=== PATIENT | female | born 1970 | race Caucasian/White ===

== ENCOUNTER 2023-05-26 22:29 | Emergency (ER) | payer OTHER, SELFPAY ==
[2023-05-26 22:30] VITALS: BP 166/96
[2023-05-26 22:53] LABS: % Basophils 0.5 % (0-2); % Immature Granulocytes 0.2 % (0-0.5); % Lymphocytes 44.6 % (20.5-51.1); % Monocytes 6.9 % (1.7-9.3); % Neutrophils 43.8 % (42.2-75.2); Absolute Basophils 0.1 10^3/uL (0-0.2); Absolute Eosinophils 0.4 10^3/uL (0-0.7); Absolute Lymphocytes 4.6 10^3/uL (1.2-3.4); Absolute Monocytes 0.7 10^3/uL (0.1-0.6); Absolute Neutrophils 4.5 10^3/uL (1.4-6.5); Hematocrit 39.1 % (37.0-47.0); Hemoglobin 14.2 g/dL (12.0-16.0); Mean Corp Hgb Conc. 36.3 g/dL (33.0-37.0); Mean Corpuscular Hgb 31.2 pg (27.0-31.0); Mean Corpuscular Volume 85.9 fL (81.0-99.0); Mean Platelet Volume 10.3 fL (7.4-10.4); Nucleated Red Blood Cells % 0 %; Platelet Count 243 10^3/uL (130-400); Red Blood Cell Count 4.55 10^6/uL (4.20-5.40); Red Cell Dist. Width 11.9 % (11.5-14.5); White Blood Cell Count 10.3 10^3/uL (4.8-10.8)
[2023-05-26 23:07] LABS: HCG, Serum Qualitative Screen Negative
[2023-05-26 23:10] LABS: ALT (SGPT) 21 U/L (0-35); AST (SGOT) 27 U/L (14-36); Albumin 4.5 g/dl (3.5-5.0); Alkaline Phosphatase 68 U/L (38-126); Blood Urea Nitrogen 34 mg/dl (7-17); Calcium 9.7 mg/dl (8.4-10.2); Carbon Dioxide 21 mmol/L (22-30); Chloride 108 mmol/L (98-107); Glucose 113 mg/dl (70-99); Potassium 4.1 mmol/L (3.5-5.1); Sodium 136 mmol/L (135-145); Total Bilirubin 0.7 mg/dl (0.2-1.3); Total Protein 7.4 g/dl (6.3-8.2); eGFR > 60.00
--- NOTE | 2023-05-26 23:45 | ED.GENMED ---
History of Present Illness
<SMOOTH Benton - Last Filed: 05/27/23 02:24>
General
Chief Complaint: Heart Rate Problem
Source: patient
Exam Limitations: none
Time Seen by Provider: 05/26/23 23:34
Nursing documentation reviewed up to this point in time: agreed with
Travel History
Have you had any contact with someone who has COVID-19?: No
Do you have any symptoms of coronavirus? Fever > 100 degrees, chills, cough, shortness of breath, sore throat, loss of taste or smell, muscle aches, or headache?: No
History of Present Illness
History of Present Illness:
Pt is a 52 yo female with PMH of ex-smoker and asthma who presents tonight with intermittent heart palpitations at rest. Pt states that for the last week, she has been experiencing episodes of heart palpitations while she is resting. The episodes
have not occurred when she is training for her triathalon or when she was skiing tonight, only when she is sitting or laying down. She described the palpitations as 'fluttering then 2-3 heavy beats then back to normal' lasting less than one minute
each time. Denies associated chest pain, SOB, arm pain, jaw pain, lightheadedness, dizziness, headache. Denies recent illnesses or fever. Denies increased stress or caffeine recently. Pt denies prior history of cardiac problems and does not
currently see a pantry goods worker.
Review of Systems
<SMOOTH Benton - Last Filed: 05/27/23 02:24>
Review of Systems
Allergies reviewed?: Yes
All Other Systems: ROS reviewed and negative except as documented in HPI and ROS
Phy Exam
<SMOOTH Benton - Last Filed: 05/27/23 02:24>
General Physical Exam
General Presentation: well appearing and no apparent distress
General age: appears stated age
General Skin: warm and dry
General Habitus: normal
General Mental: alert
General Hydration: appears well hydrated
ENT Exam
ENT Exam: pharynx normal, neck supple, normocephalic, lymphnodes and swallowing well
Eye Exam
Eye Exam: PERRL and conjunctiva normal
Cardiovascular Exam
Cardiovascular Exam: no edema, no gallop, no murmur, normal peripheral pulses and occasionally irregular (heard 3 irregular beats that aligned with pt feeling the palpitations. Otherwise regular)
Pulmonary Exam
Pulmonary Exam: lungs clear, no respiratory distress, no rales, no crackles, no rhonchi, no wheezing and no cough
Gastrointestinal Exam
Gastrointestinal Exam: normal bowel sounds, non tender, soft and non distended
Neurological Exam
Neurological Exam: alert, oriented x3 and speech normal
Musculoskeletal Exam
Musculoskeletal Exam: full ROM
Skin Exam
Skin Exam: normal color and warm/dry
Psychiatric Exam
Psychiatric Exam: normal mood/affect
Course
<SMOOTH Benton - Last Filed: 05/27/23 02:24>
Orders/Labs/Results
Orders:
Orders
05/26/23 22:33
EKG [Electrocardiogram (*1)] Urgent
Reason for Study: Palpitations
EKG- Treatment ONCE
05/26/23 22:35
Test Result ONCE
05/26/23 22:47
CBC/With Diff [Complete Blood Count/With Diff] Urgent
CMP [Comprehensive Metabolic Panel] Urgent
HCG, Serum Qualitative Screen Urgent
05/27/23 00:08
EKG [Electrocardiogram (*1)] Urgent
Reason for Study: Palpitations
05/27/23 00:19
TSH Reflex To Free T4 Urgent
05/27/23 00:21
0.9% Sodium Chloride 1000 ml [Nss] 1,000 ml IV BOLUS
Abnormal Lab Results
05/26/23
22:47
MCH 31.2 H pg
(27.0-31.0)
Absolute Lymphs (auto) 4.6 H 10^3/uL
(1.2-3.4)
Absolute Monos (auto) 0.7 H 10^3/uL
(0.1-0.6)
Chloride 108 H mmol/L
(98-107)
Carbon Dioxide 21 L mmol/L
(22-30)
BUN 34 H mg/dl
(7-17)
Creatinine 1.1 H mg/dL
(0.6-1.0)
Glucose 113 H mg/dl
(70-99)
05/26/23 22:47
05/26/23 22:47
Vital Signs
Initial and Last Documented VS:
Initial Vital Signs
Temp Pulse Resp BP Pulse Ox
97.8 F 72 16 166/96 100
05/26/23 22:30 05/26/23 22:30 05/26/23 22:30 05/26/23 22:30 05/26/23 22:30
Last Documented Vital Signs
Temp Pulse Resp BP Pulse Ox
97.8 F 68 20 138/87 98
05/26/23 22:30 05/27/23 01:30 05/27/23 01:30 05/27/23 00:07 05/27/23 00:08
Huberlt;Arnaud Barnett, - Last Filed: 05/27/23 02:23>
Orders/Labs/Results
Orders:
Orders
05/26/23 22:33
EKG [Electrocardiogram (*1)] Urgent
Reason for Study: Palpitations
EKG- Treatment ONCE
05/26/23 22:35
Test Result ONCE
05/26/23 22:47
CBC/With Diff [Complete Blood Count/With Diff] Urgent
CMP [Comprehensive Metabolic Panel] Urgent
HCG, Serum Qualitative Screen Urgent
05/27/23 00:08
EKG [Electrocardiogram (*1)] Urgent
Reason for Study: Palpitations
05/27/23 00:19
TSH Reflex To Free T4 Urgent
05/27/23 00:21
0.9% Sodium Chloride 1000 ml [Nss] 1,000 ml IV BOLUS
Abnormal Lab Results
05/26/23
22:47
MCH 31.2 H pg
(27.0-31.0)
Absolute Lymphs (auto) 4.6 H 10^3/uL
(1.2-3.4)
Absolute Monos (auto) 0.7 H 10^3/uL
(0.1-0.6)
Chloride 108 H mmol/L
(98-107)
Carbon Dioxide 21 L mmol/L
(22-30)
BUN 34 H mg/dl
(7-17)
Creatinine 1.1 H mg/dL
(0.6-1.0)
Glucose 113 H mg/dl
(70-99)
05/26/23 22:47
05/26/23 22:47
Vital Signs
Initial and Last Documented VS:
Initial Vital Signs
Temp Pulse Resp BP Pulse Ox
97.8 F 72 16 166/96 100
05/26/23 22:30 05/26/23 22:30 05/26/23 22:30 05/26/23 22:30 05/26/23 22:30
Last Documented Vital Signs
Temp Pulse Resp BP Pulse Ox
97.8 F 68 20 138/87 98
05/26/23 22:30 05/27/23 01:30 05/27/23 01:30 05/27/23 00:07 05/27/23 00:08
<SMOOTH Benton - Last Filed: 05/27/23 02:24>
MDM/Problems Addressed
Differential Diagnosis Includes:
PVCs, PACs, paroxysmal SVT, anxiety
MDM/Problems Addressed:
Pt is a 52 yo female who presents with one week of intermittent palpitations at rest with no associated symptoms
<SMOOTH Benton - Last Filed: 05/27/23 02:24>
*Critical Care Note
Total Time (30-74mins, 75-104mins- exclusive of procedures): Not Applicable
<SMOOTH Benton - Last Filed: 05/27/23 02:24>
Update Note
Update Note:
05/27/2023 0053 AM: Pt is resting comfortably in bed. Explained that we are still waiting on her TSH labs and another EKG to try to pickle pumper on her palpitations.
ED Attending Note
<SMOOTH Benton - Last Filed: 05/27/23 02:24>
-
Portions of this chart may have been created with voice recognition software.� Occasional wrong word or��sound alike� substitutions may have occurred due to the inherent limitations of voice recognition software.
<Arnaud Barnett DO - Last Filed: 05/27/23 02:23>
ED Attending Note
Patient seen and examined by attending physician: Yes
I performed the substantive portion of visit, reviewed & personally made and approve the management plan that is documented in note by myself or CLEOPATRA.: Yes
ED Attending Note:
This is a pleasant 52-year-old female that presents with palpitations. She states that they have been intermittent for the last week. He states that she has no chest pain or shortness of breath. She states that she is very athletic and swims on a
regular basis. She skis very often. She reports that she was skiing today, without palpitations. When she has palpitations she states that they are '2-3 beats of an irregular nature 'and then back to normal. Patient is a former smoker and does
have asthma. Patient was seen in conjunction with the PA student. I have reviewed and agree with the history and treatment plan presented. On my independent physical exam, patient is awake, alert, and oriented x3, no acute distress. Palpitations
not reproducible. Heart is regular rate rhythm. Lungs are clear to auscultation bilaterally without wheezes rales or rhonchi present. Extremities have good distal pulses. Skin is warm and dry. No edema present.
Vital signs are stable. Patient not hypoxic
Nursing note reviewed. I agree with nursing documentation up to this point in time.
Home Meds and allergies reviewed.
NUMBER AND COMPLEXITY OF PROBLEMS ADDRESSED AT THE ENCOUNTER
� Chronic conditions affecting care: Former smoker
� Acute Exacerbation and/or Progression of Chronic Illness:
� Differential Diagnosis includes: Palpitations, dehydration, ACS
AMOUNT AND/OR COMPLEXITY OF DATA TO BE REVIEWED AND ANALYZED
I performed an independent evaluation of the following and my interpretation is:
EKG: EKG shows normal sinus rhythm rate 60, normal intervals, normal axis. No evidence of acute ischemia present.
CT:
X-rays: Chest x-ray read as normal by me.
Ultrasound:
Laboratory Studies:
Other:
Review of other/old records:
Clinical information was obtained by an independent historian:
Prescriptions/Medications Considered but not given:
Further testing considered but not performed:
RISK OF COMPLICATIONS AND/OR MORBIDITY OR MORTALITY OF PATIENT MANAGEMENT
Social determinants of health affecting care: Good Social Support, very athletic
Discussion with other providers:
Escalation of care including admission/observation vs risk of discharge considered:
CRITICAL CARE NOTE:
Total Time (exclusive of procedures):
Update:
Discharge Plan
Departure
Patient Disposition: Home (Routine Discharge)
Date of Disposition: 05/27/23
Time of Disposition: 02:22
Patient with high blood pressure during this ER visit?: Yes
Condition: Good
Covid-19: Not Applicable
Discharge Problem:
Heart palpitations
Instructions: Palpitations (DC), BLOOD PRESSURE
Prescriptions:
No Action
albuterol sulfate 90 mcg/actuation Hfa Aerosol Inhaler
2 puff INHALATION PRN PRN (Reason: SOB, Wheezes)
fluticasone propionate [Flonase Allergy Relief] 50 mcg/actuation [place],Suspension
2 spray INTRANASAL DAILY PRN (Reason: allergy symptoms)
oxycodone-acetaminophen 5-325 mg Tablet
1 tab PO Q4HPRN PRN (Reason: moderate pain) Qty: 20 0RF
Referrals:
[facility]- [facility] [Provider Group]
Sandie Barnard PA [Family Provider] -
Activity Restrictions/Additional Instructions:
It was a pleasure meeting you and taking part in your care. We hope for your continued healing and wellness.
Please read discharge instructions in their entirety. However, they are for general education and may not describe your exact diagnosis at discharge. Information on your ER visit and medical conditions were discussed with you along with appropriate
follow up information...
If indicated, please take your medications as instructed and indicated on discharge paperwork.
Please schedule a follow up appointment as directed. Call to schedule an appointment
Please return to the emergency department with ANY change in, persisting, or worsening of symptoms. If any of your symptoms do not improve, or persist, or become more severe within 6-12 hours, please return to the emergency department for further
care.
Please return to the emergency department if you develop a headache, neck pain/stiffness, fever greater than 100.4F, chest pain, shortness of breath, persistent nausea, vomiting, slurred speech, difficulty walking, numbness/tingling, weakness, signs
of infection or any other symptoms that are worrisome to you.
If you have any questions or concerns please do not hesitate to call the Hospital at or E-mail me directly at [email or web address]
Interventions
Interventions:
*Risk Screen - Suicide Last Done: 05/26/23 22:30
*General Assessment Last Done: 05/26/23 22:30
ED- Fall Risk Assessment Last Done: 05/27/23 00:06
*ED COVID-19 Vaccine History Last Done: 05/26/23 22:30
ED- Cardiac Assessment Last Done: 05/27/23 00:06
ED- Pulmonary Assessment Last Done: 05/27/23 00:06
[2023-05-27 00:07] VITALS: BP 138/87
[2023-05-27] MEDS: NSS 1000 IV (00:21)
[2023-05-27 03:30] LABS: TSH Reflex To Free T4 2.82 uIU/ml (0.47-4.68)
== END 2023-05-27 02:32 | disposition home or self-care (01) ==
LOC: EMR 22:29
PROVIDERS: EMERGENCY PHYSICIAN Student in an Organized Health Care Education/Training Program; FAMILY PHYSICIAN Physician Assistant
DX: R00.2 Palpitations (principal); Z87.891 Personal history of nicotine dependence; F41.9 Anxiety disorder, unspecified; J45.909 Unspecified asthma, uncomplicated
CPT/HCPCS: 99283; 96360; 80053; 84443; 84703; 85025; 93005

== ENCOUNTER → 2023-06-09 12:48 | Outpatient (REF) | payer OTHER, SELFPAY | LOC: RCS 12:48 | PROVIDERS: ATTENDING PHYSICIAN Physician Assistant | DX: I47.10 Supraventricular tachycardia, unspecified (principal); I49.1 Atrial premature depolarization; I49.3 Ventricular premature depolarization | CPT/HCPCS: 93225; 93226 ==

== ENCOUNTER → 2023-07-23 14:20 | Outpatient (REF) | payer OTHER, SELFPAY | LOC: DHCBC HW 14:20 | PROVIDERS: ATTENDING PHYSICIAN Internal Medicine Cardiovascular Disease | DX: R00.2 Palpitations (principal) | CPT/HCPCS: 93306 ==

== ENCOUNTER 2025-03-15 05:03 | Day surgery (SDC) | payer OTHER, SELFPAY ==
[2025-03-15] VITALS (11 sets, daily range): BP systolic 90–131; BP diastolic 46–73; BMI 26.7; BMI 26.8
--- NOTE | 2025-03-15 01:11 | ED.GENMED ---
History of Present Illness
General
Chief Complaint: Abdominal Pain
Source: patient
Time Seen by Provider: 03/15/25 01:05
Nursing documentation reviewed up to this point in time: agreed with
History of Present Illness
History of Present Illness:
Note:
CHIEF COMPLAINT(S)
Right-sided abdominal pain and nausea.
HISTORY OF PRESENT ILLNESS
The patient is a 54-year-old female who presented with complaints of right-sided abdominal pain and nausea. The symptoms began yesterday after the patient assisted with moving her mother from [place] to [place], [place]. She initially attributed
her discomfort to prolonged standing and poor nutrition, noting, 'my appetite just totally went,' and consuming less healthy meals like pizza. She experienced progressive worsening of pain, localized to the right side, which became severe enough to
cause her to stop during the drive home. She also experienced nausea and vomiting. The patient described increased pain with movement, particularly while driving over bumps, and could not alleviate the pain with rest.
The patient also reported chills both on the way home and upon returning to [place]. She attempted to sleep off her discomfort but was unsuccessful in doing so.
PAST MEDICAL AND SURGICAL HISTORY
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 The condition improved but eventually deteriorated, prompting surgical intervention.
REVIEW OF SYSTEMS
- Gastrointestinal: Presenting with right-sided abdominal pain, nausea, and vomiting.
- Constitutional: Chills reported.
PHYSICAL EXAM
General: Alert, no acute distress.
Skin: Warm, dry.
Head: Normocephalic, atraumatic.
Neck: Supple, trachea midline.
Eye Ears, nose, mouth, and throat: Oral mucosa moist.
Cardiovascular: Normal peripheral perfusion, No edema.
Respiratory: Respirations are non-labored.
Gastrointestinal: Tenderness on the right side.
Back: Normal range of motion, Normal alignment.
Musculoskeletal: Normal ROM, normal strength.
Neurological: Alert and oriented to person, place, time, and situation, No focal neurological deficit observed.
Psychiatric: Cooperative, appropriate mood & affect.
PROBLEM LIST
Acute Problems:
- Right-sided abdominal pain
- Nausea and vomiting
- Suspected appendicitis
Chronic Problems:
- Chronic kidney disease history
PLAN
1. Await confirmation from radiology regarding the diagnosis of appendicitis.
2. If appendicitis is confirmed, consult with a surgeon for potential surgical intervention.
3. Maintain the patient on nil per os (NPO) status until further directive.
4. Initiate empirical antibiotic therapy.
5. Possible admission for surgical evaluation and intervention.
DIFFERENTIAL DIAGNOSIS
The Differential Diagnosis includes, in no particular order and is not limited to:
1. Acute appendicitis
2. Right-sided nephrolithiasis
3. Gastroenteritis
4. Peptic ulcer disease
5. Right ovarian torsion
6. Hepatitis
7. Pancreatitis
8. Diverticulitis
9. Pelvic inflammatory disease
10. Inflammatory bowel disease
Disposition:
SUMMARY OF ENCOUNTER
The patient presented to the emergency department with complaints of right-sided abdominal pain and nausea, which began after assisting with moving activities. The pain localized to the right side, became severe, and was associated with nausea,
vomiting, and chills. After assessment, acute appendicitis was suspected, and the patient was evaluated and prepared for admission to address the condition.
DISPOSITION
Admit.
ASSESSMENT
The patient is suspected of having acute appendicitis, given the presentation of right-sided abdominal pain, nausea, vomiting, and tenderness on examination.
EMERGENCY TREATMENTS ADMINISTERED
Pain management with hydromorphone (Dilaudid).
MANAGEMENT OF THE PATIENTS CARE WAS DISCUSSED WITH
Admission was planned under Dr. Christie service for further surgical evaluation and treatment of acute appendicitis.
PLAN
1. Admit the patient under Dr. Christie service for surgical evaluation of acute appendicitis.
2. Maintain the patient on nil per os (NPO) status.
3. Continue pain management and start empirical antibiotic therapy.
INDEPENDENT REVIEW OF LABS AND INTERPRETATION OF TESTS
Awaiting radiology confirmation for appendicitis.
MEDICATION RECONCILIATION
- Hydromorphone (Dilaudid) administered for pain management.
MEDICAL DECISION MAKING
- Number and Complexity of Problems Addressed: Chronic conditions affecting care include history of right nephrectomy due to chronic kidney disease. DDx list includes acute appendicitis, right-sided nephrolithiasis, gastroenteritis, and others.
- Data:
- Category 1: Awaiting radiology results for confirmation of appendicitis.
- Category 3: Planned discussion with and management by Dr. Duran for surgical evaluation.
-Risk: The decision for surgical evaluation and potential operation due to suspected appendicitis indicates a higher risk requiring hospital admission.
DIAGNOSIS
- Acute appendicitis (ICD-10: K35.80).
Phy Exam
Physical Exam
Physical Exam:
.
Course
Orders/Labs/Results
Orders:
Orders
03/15/25 01:06
0.9% Sodium Chloride 1000 ml [Nss] 1,000 ml IV BOLUS
Test Result ONCE
03/15/25 01:07
CT Abd/Pel (IV only)-DH only Urgent
Comment:
Reason For Exam: RLQ abd pain
03/15/25 01:25
Complete Blood Count/With Diff Urgent
Comprehensive Metabolic Panel Urgent
HCG, Serum Qualitative Screen Urgent
Lactic Acid Urgent
Lipase Urgent
PTT Urgent
Prothrombin Time Urgent
Urinalysis Reflex To Culture Urgent
Date Specimen was Collected: 03/15/25
Time Specimen was Collected: 01:21
Urine Microscopic Reflex Cult Urgent
03/15/25 03:02
HYDROmorphone [Dilaudid] 1 mg .ROUTE .STK-MED ONE
Ondansetron Injectable [Zofran] 4 mg .ROUTE .STK-MED ONE
03/15/25 03:05
HYDROmorphone [Dilaudid] 1 mg IV NOW STA
03/15/25 03:09
Ondansetron Injectable [Zofran] 4 mg IV NOW STA
Abnormal Lab Results
03/15/25
01:25
WBC 14.8 H 10^3/uL
(4.8-10.8)
Hct 36.1 L %
(37.0-47.0)
MPV 10.5 H fL
(7.4-10.4)
Abs Immat Gran (auto) 0.1 H 10^3/uL
(0-0.05)
Absolute Neuts (auto) 11.1 H 10^3/uL
(1.4-6.5)
Absolute Monos (auto) 1.7 H 10^3/uL
(0.1-0.6)
Neutrophils % 75.3 H %
(42.2-75.2)
Lymphocytes % 12.1 L %
(20.5-51.1)
Monocytes % 11.7 H %
(1.7-9.3)
Carbon Dioxide 20 L mmol/L
(22-30)
BUN 19 H mg/dl
(7-17)
Glucose 166 H mg/dl
(70-99)
Lactic Acid 2.2 H mmol/L
(0.7-2.0)
Ur Occult Blood Reflex 2+ A
(Negative)
Urine Albumin (Reflex) 2+ A
(Neg - Trace)
03/15/25 01:25
03/15/25 01:25
Vital Signs
Initial and Last Documented VS:
Initial Vital Signs
Temp Pulse Resp BP Pulse Ox
98.9 F 79 18 131/73 99
03/15/25 00:55 03/15/25 00:55 03/15/25 00:55 03/15/25 00:55 03/15/25 00:55
Last Documented Vital Signs
Temp Pulse Resp BP Pulse Ox
98.9 F 79 18 131/73 99
03/15/25 00:55 03/15/25 00:55 03/15/25 00:55 03/15/25 00:55 03/15/25 01:11
*Radiology
Radiology exam reviewed: radiology read reviewed (Verbal)
*Pulse Oximetry
SaO2: 99
Oxygen Mode of Delivery: Room air
Patient hypoxic: no
*Critical Care Note
Total Time (30-74mins, 75-104mins- exclusive of procedures): Not Applicable
Update Note
Update Note:
NAME: LIVAN ENRIQUEZ
DATE OF EXAM: 03/15/2025
Patient No: [id number]
Physician: KARLI^LUCIEN
Date of : 1970
Past Medical History (entered by Technologist):
Reason For Exam (entered by Technologist):
Other Notes (entered by Technologist): c/o RLQ abd pain x 2 days, worsening. vomited x 3, no diarrhea. pain radiates to her back
Additional Information (per [facility]):
CT ABDOMEN/PELVIS WITH CONTRAST
IMPRESSION:
1. Acute appendicitis, with appendix measuring up to 10 mm, with wall thickening and surrounding stranding.
2. No bowel obstruction. Normal gallbladder.
Incidentals:
- Diverticulosis
- No obstructive uropathy. The right kidney is absent
- No hepatic or pancreatic mass.
- No abdominal aortic aneurysm.
- No acute osseous abnormality.
- Bibasilar atelectasis doing well how you
- No acute abnormality within the visualized soft tissues.
Case discussed with Dr. Barnett on Mar 15 2025 3:07AM ET
ED Attending Note
-
Portions of this chart may have been created with voice recognition software.� Occasional wrong word or��sound alike� substitutions may have occurred due to the inherent limitations of voice recognition software.
Discharge Plan
Departure
Patient Disposition: Admit
Date of Disposition: 03/15/25
Time of Disposition: 03:23
Admit to: Med/Surg
Presentation/result/management discussed w/ accepting MD/DO: Bro
Discharge Problem:
Acute appendicitis
Prescriptions:
No Action
albuterol sulfate 90 mcg/actuation Hfa Aerosol Inhaler
2 puff INHALATION PRN PRN (Reason: SOB, Wheezes)
fluticasone propionate [Flonase Allergy Relief] 50 mcg/actuation [place],Suspension
2 spray INTRANASAL DAILY PRN (Reason: allergy symptoms)
oxycodone-acetaminophen 5-325 mg Tablet
1 tab PO Q4HPRN PRN (Reason: moderate pain) Qty: 20 0RF
Referrals:
Angela Villareal PA [Family Provider, Family Practice]
Interventions
Interventions:
*Risk Screen - Suicide Last Done: 03/15/25 00:55
*General Assessment Last Done: 03/15/25 01:31
*Neglect/Abuse Screening Last Done: 03/15/25 01:31
*ED- Fall Risk Assessment Last Done: 03/15/25 01:31
*ED COVID-19 Vaccine History Last Done: 03/15/25 01:31
*ED Influenza Vaccine History Last Done: 03/15/25 01:31
Discharge Date and Time
Print Language: KHMER
[2025-03-15 01:37] LABS: Urine Character Clear (Clear)
[2025-03-15 01:39] LABS: Hematocrit 36.1 % (37.0-47.0); Hemoglobin 12.9 g/dL (12.0-16.0); Mean Corp Hgb Conc. 35.7 g/dL (33.0-37.0); Mean Corpuscular Volume 84.0 fL (81.0-99.0); Nucleated Red Blood Cells % 0 %; Platelet Count 232 10^3/uL (130-400); Red Cell Dist. Width 11.9 % (11.5-14.5)
[2025-03-15 01:48] LABS: APTT 25.0 Sec (23.4-35.0); INR 1.03; PT 13.8 Sec (11.4-14.6)
[2025-03-15 01:50] LABS: HCG, Serum Qualitative Screen Negative
[2025-03-15 01:59] LABS: ALT (SGPT) 20 U/L (0-35); AST (SGOT) 19 U/L (14-36); Albumin 4.3 g/dl (3.5-5.0); Alkaline Phosphatase 86 U/L (38-126); Blood Urea Nitrogen 19 mg/dl (7-17); Calcium 9.4 mg/dl (8.4-10.2); Carbon Dioxide 20 mmol/L (22-30); Chloride 107 mmol/L (98-107); Estimated Creatinine Clearance 71 ml/min; Glucose 166 mg/dl (70-99); Lipase 91 U/L (23-300); Potassium 4.1 mmol/L (3.5-5.1); Sodium 137 mmol/L (135-145); Total Protein 7.1 g/dl (6.3-8.2); eGFR > 60.00
[2025-03-15 02:15] LABS: Urine Red Blood Cell 0-2 /HPF (0-2); Urine White Cell 0-2 /HPF (0-5)
[2025-03-15 02:17] LABS: Urine Squamous Cell 0-2 /LPF (Few)
[2025-03-15] MEDS: NSS 1000 IV ×2 (02:25→06:38)
[2025-03-15] MEDS: DILAUDID 1 MG IV (03:05)
[2025-03-15] MEDS: ZOFRAN 4 MG IV (03:09)
[2025-03-15] MEDS: ZOSYN 100 IV (03:46)
--- NOTE | 2025-03-15 05:00 | HPS.HSE ---
Addendum entered and electronically signed by Khai Crabtree MD 03/15/25 09:40:
I saw and examined the patient.
The Unified Communications Engineer's note was reviewed and I agree with the note.
Comment: 24hr of RLQ pain and tenderness a/w n/v. Denies f/c. on exam ttp to RLQ, rovsing's +. Plan for lap appy. OCTOR. Cefotetan ordered. Informed consent obtained.
Original Note:
Family Physician
-
Family Physician: Angela Villareal
Chief Complaint
-
'Abdomen pain'
History of Present Illness
54 year old patient presents to ED with the c/o Right sided abdomen pain, nausea and vomiting. Symptoms started yesterday while assisting mother to move from [place] to [place], [place]. She thought the pain may be due to her being busy standing up,
moving things around and bad eating habits lately. Her pain progressively got worse while she drove back to the point she had to stop driving and could not alleviate the pain with rest. Reports chills, Last normal stool 03/14. Denies any chest pain
or shortness of breath.
Medical History
Past Medical History
Past Medical History: Reports Other
Additional Past Medical History:
Kidney Failure, secondary to infection
Past Surgical History: Reports Other
Additional Past Surgical History:
Right nephrectomy 2022
Social History
Tobacco: Non-smoker
Alcohol: None
Living: With Family
Family History
Family History: Not pertinent
Allergies / Home Medications
Allergies reflects when Allergies were last updated in [facility].
Home Medications with original date entered in [facility]
Allergy/Medication List:
Allergies
Allergy/AdvReac Type Severity Reaction Status Date / Time
No Known Allergies Allergy Verified 03/15/25 00:59
Home Medications
albuterol sulfate 90 mcg/actuation aerosol inhaler 2 puff inhalation PRN PRN SOB, Wheezes 10/16/22
fluticasone propionate 50 mcg/actuation nasal spray,suspension (Flonase Allergy Relief) 2 spray intranasal DAILY PRN allergy symptoms 10/16/22
oxycodone-acetaminophen 5 mg-325 mg tablet 1 tab PO Q4HPRN PRN moderate pain #20 tabs 10/22/22
patient is not on any of these medications currently
Review of Systems
-
A 12 point ROS was completed and negative except as noted: Yes
Constitutional: Reports No Symptoms
EENT: Reports No Symptoms
Respiratory: Reports No Symptoms
Cardiac: Reports No Symptoms
Abdomen/GI: Reports Abdominal Pain, Nausea and Vomiting
: Reports No Symptoms
Musculoskeletal: Reports No Symptoms
Skin: Reports No Symptoms
Neurological: Reports No Symptoms
Endocrine: Reports No Symptoms
Hematologic/Lymphatic: Reports No Symptoms
Psych: Reports No Symptoms
Physical Exam
Vital Signs
Vital Signs
Temp Pulse Resp BP Pulse Ox
98.9 F 79 18 131/73 99
03/15/25 00:55 03/15/25 00:55 03/15/25 00:55 03/15/25 00:55 03/15/25 01:11
Physical Exam
General: Well Developed, Well Nourished and No Apparent Distress
HEENT: NormoCephalic, Moist mucous membranes and Atraumatic
Respiratory: Clear and Non Labored Respirations
Cardiac: S1/S2 and Regular Rhythm
GI: Soft, Non Tender, Non Distended and Normal Bowel Sounds
Rectal: Deferred by Provider
Genito-urinary: No costovertebral tender
Musculoskeletal: No Clubbing, No Cyanosis and No Edema
Skin: Warm and Dry
Neuro: Awake, AO x 3 and Nonfocal/grossly intact
Hematologic/Lymphatic: No Lymphadenopathy
Psych: Calm and Intact Judgment/Insight
Laboratory Results
-
03/15/25:25
03/15/25:25
Laboratory Results
PT 13.8 Sec (11.4-14.6) 03/15/25:
INR 1.03 03/15/25:25
APTT 25.0 Sec (23.4-35.0) 03/15/25:25
Lactic Acid 2.2 mmol/L (0.7-2.0) H 03/15/25:
Total Bilirubin 0.9 mg/dl (0.2-1.3) 03/15/25:25
AST 19 U/L (14-36) 03/15/25:
ALT 20 U/L (0-35) 03/15/25:25
Alkaline Phosphatase 86 U/L (38-126) 03/15/25:25
Lipase 91 U/L (23-300) 03/15/25:25
Data Reviewed
-
CT Scan: Report Reviewed by me
Lab Data: Labs Reviewed by me
Impression/Plan
-
54 year old patient with the complain of Abdomen pain
# Abdomen pain Likely due to Acute Appendicis
WBC 14.8
Lactic acid 2.2
CT abd/pelvis: Acute appendicitis with appendix measuring up to 10mm with wall thickening and surrounding stranding. No Bowel Obstruction. Normal gallbladder.
Continue IV fluids
Continue IV Dilaudid
Continue IVF
NPO
Admit to Med surg
Full code
Lovenox SQ
[2025-03-15] MEDS: DILAUDID 0.5 MG IV (06:43)
--- NOTE | 2025-03-15 11:16 | OR.RPT ---
Operative Report
Operative Report
Primary Surgeon: Bro
Pre-op Diagnosis: Acute appendicitis
Post-op Diagnosis: Same
Procedure Performed: Laparoscopic appendectomy
Anesthesia Type: GETA
Specimen / Cultures: Appendix
Estimated Blood Loss: 10cc
Complications: None immediate
Operative Findings: Moderately inflamed appendix at mid body and tip, healthy base, no purulence, minimal turbid fluid in pelvis removed with raytec
Date of Surgery: 03/15/25
Indications: This 54F developed right lower quadrant abdominal pain and on workup was found to have acute appendicitis. Laparoscopic appendectomy was elected.
Description of procedure: The patient was placed on the operating table in the supine position. General anesthesia was induced. A time-out was completed verifying correct patient, procedure, site, positioning, and special equipment prior to
beginning this procedure. An orogastric tube was placed. The abdomen was prepped and draped in the usual sterile fashion. A stab incision was made in left upper quadrant and the Veress needle was inserted. Proper position was confirmed by aspiration
and saline meniscus test. The abdomen was insufflated with carbon dioxide to a pressure of 12 mmHg. The patient tolerated insufflation well.
A 5mm optical trocar was then inserted at the left lower quadrant. The laparoscope was inserted and the abdomen inspected. No injuries from initial trocar placement or Veress needle insertion were noted. Additional trocars were then inserted in the
following locations: a 12-mm trocar at the umbilicus and a 5-mm trocar midline in the suprapubic space. The abdomen was inspected and no abnormalities were found. The table was placed in the Trendelenburg position with the right side up. The tip of
the appendix was gently grasped with an atraumatic grasper and retracted toward the patient�s feet and abdominal wall. This maneuver exposed the appendiceal blood supply which was controlled with the Ligasure device. Following this, a laparoscopic
linear cutting stapler with a 45mm sanches load was deployed and used to transect the appendix at its base. The appendix was placed in an endoscopic retrieval bag, removed through the umbilical port, and passed off the table as a specimen.
We then turned our attention to the staple line, which was noted to be hemostatic. Scant turbid fluid in the pelvis was absorbed with a raytec and removed. The umbilical trocar site was closed at the fascial level laparoscopically with 2-0 PDS under
direct vision. Secondary trocars were removed under direct vision and noted to be hemostatic. The laparoscope was withdrawn and the abdomen was allowed to collapse. The skin was closed with subcuticular sutures of 4-0 monocryl and topical skin
adhesive. The orogastric tube was removed.
The patient tolerated the procedure well and was taken to the postanesthesia care unit in stable condition.
--- NOTE | 2025-03-15 11:18 | W.DS.TRANS ---
DC Summary - Security Guard
-
Discharge Instructions:
Instructions:
Stand-Alone Forms:
Changes to Home Medications: No
Discharge Medications:
DC Medications w/original date entered in [employer] [facility]
albuterol sulfate 90 mcg/actuation aerosol inhaler 2 puff inhalation PRN PRN SOB, Wheezes 10/16/22
fluticasone propionate 50 mcg/actuation nasal spray,suspension (Flonase Allergy Relief) 2 spray intranasal DAILY PRN allergy symptoms 10/16/22
oxycodone-acetaminophen 5 mg-325 mg tablet 1 tab PO Q4HPRN PRN moderate pain #20 tabs 10/22/22
Home Medication Changes
Pending Results: No
--- NOTE | 2025-03-15 12:04 | CM ---
CM following for discharge planning. Pt admitted to with abdominal pain, determined needing appendectomy.
Pt was in the OR at the time of my visit this AM.
Pt lives with her Arnaud in a 2 story home with 2 entry steps. Bed and bath are on the second level; poweder room on the first floor.
Plan: Discharge to home when medically cleared. No needs anticipated.
Outpatient OBS form reviewed with pt's . Signed copy placed on chart.
[2025-03-15] MEDS: ULTRAM 50 MG PO (12:27)
--- NOTE | 2025-03-15 12:28 | PTCARENOTE ---
Pt arrived to 2 south s/p lap appy. Pt 96% on 2L. 3 lap sites and 1 poke site DERMATOLOGICAL SURGEON with glue. DTV. Teds on pt. Bed locked and in lowest position. Care ongoing.
[2025-03-15] MEDS: OFIRMEV 100 IV (16:06)
[2025-03-15] MEDS: NSS 500 IV (16:07)
== END 2025-03-15 17:59 | disposition home or self-care (01) ==
LOC: SDS 05:03
PROVIDERS: Nurse Practitioner Gerontology; ATTENDING PHYSICIAN Surgery; EMERGENCY PHYSICIAN Student in an Organized Health Care Education/Training Program; FAMILY PHYSICIAN Physician Assistant
DX: K35.80 Unspecified acute appendicitis (principal)
CPT/HCPCS: 44970; 74177; 80053; 81003; 81015; 83605; 83690; 84703; 85025; 85610; 85730; 88304; 96361; 96374; 96375; 99285; Q9967